=== PATIENT | male | born 1965 | race Caucasian/White ===

== ENCOUNTER 2021-11-05 12:54 | Outpatient (REF) | payer OTHER, SELFPAY ==
[2021-11-05 14:54] LABS: COVID-19 Test Positive (Negative)
== END 2021-11-05 12:55 | disposition home or self-care (01) ==
LOC: HO.LAB 12:54
PROVIDERS: Visit Provider Internal Medicine
DX: Z20.822 Contact with and (suspected) exposure to COVID-19 (principal)
CPT/HCPCS: 36415; 87635; C9803

== ENCOUNTER 2024-04-08 02:31 | Emergency (ER) | payer OTHER, SELFPAY ==
[2024-04-08] VITALS (8 sets, daily range): BP systolic 117–143; BP diastolic 69–90; PULSE 69–90; RESP 12–19; TEMP 36.1–36.7; O2SAT 96–98; BMI 29.4
--- NOTE | 2024-04-08 | ECG_ITS ---
Test Reason : CHEST PAIN Blood Pressure : / mmHG Vent. Rate : 068 BPM Atrial Rate : 068 BPM P-R Int : 158 ms QRS Dur : 108 ms QT Int : 414 ms P-R-T Axes : 051 027 059 degrees QTc Int : 440 ms Normal sinus rhythm Nonspecific ST abnormality Abnormal ECG No previous ECGs available Referred By: Generic ED Physician Electronically Signed By:ROSE AGOSTO
--- NOTE | ~2024-04-08 | XR_ITS ---
EXAMINATION: XR CHEST CLINICAL INFORMATION: Chest pain, weakness COMPARISON: None available. TECHNIQUE: Frontal view of the chest was obtained. FINDINGS: Lung volumes are symmetric. No focal consolidation is seen. No evidence of pneumothorax, pleural effusion, or pulmonary edema. The cardiomediastinal contour is unremarkable. No acute osseous findings are seen. XR/XR chest 1V IMPRESSION: No acute cardiopulmonary findings.
--- NOTE | 2024-04-08 02:51 | ED.CHESTPAIN ---
HPI - Chest Pain General Chief Complaint: Chest Pain Stated Complaint: chest/jaw pain Time Seen by Provider: 04/08/24 02:48 Source: patient Mode of arrival: ambulatory Limitations: no limitations History of Present Illness ED Provider: Dr. Ceasar Najera HPI narrative: 58-year-old male with history of diabetes mellitus, hypertension who presents emergency department for evaluation of bilateral jaw pain, chest pain, nausea, diaphoresis and lightheadedness. The patient states he has been under increased stress secondary to having to move and not having housing set up yet. He states that on 04/06/2024 he had 2 episodes of bilateral jaw pain that lasted hours. He was uncertain if it came on with rest or with exertion. He states that yesterday at around noon time he again had an episode of bilateral jaw pain that lasted 2 hours. He states that at midnight tonight, he had an episode of bilateral jaw pain that lasted 30 minutes and went away. At 02:00 hours again he had bilateral jaw pain that woke him up from sleep, he also had left-sided chest heaviness and left biceps pain. He states he became diaphoretic, felt lightheaded had nausea with no vomiting. At the time of my evaluation, he states that he was having chest tightness which was 5/10 and bilateral jaw pain which was 9/10. This is 1st episode of these types of symptoms. Related Data Allergies Allergy/AdvReac Type Severity Reaction Status Date / Time No Known Allergies Allergy Verified 04/08/24 03:03 Review of Systems Review of Systems: Yes all other systems are reviewed and are negative COUNT INCLUDES THE [facility] Past Medical History COUNT INCLUDES THE [facility] Narrative: Past medical history: Diabetes mellitus, hypertension. Social history: He does smoke cigarettes. He drinks alcohol several times a year. He denies drug use. Social History Social History Advance Directives: No Advance Directives Information Provided: Yes Do you have a plan to hurt others: No Plan Physical Exam Vital Signs: Vital Signs: Last Vital Signs Temp 97 F 04/08/24 03:00 Pulse 86 04/08/24 03:40 Resp 16 04/08/24 03:40 BP 133/69 04/08/24 03:40 Pulse Ox 96 04/08/24 03:40 O2 Del Method Room Air 04/08/24 03:40 BMI result Body Mass Index 29.4 Vital signs revealed elevated blood pressure of 143/89 otherwise unremarkable Exam: General: Awake, alert in no distress Head: Normocephalic, atraumatic EENT: PERRL, Lids normal, sclera normal, conjunctiva normal, nose normal , ears normal, throat without erythema or exudates Neck: Supple, no adenopathy Lung: breath sounds symmetric, no wheezing, rales or rhonchi Chest: symmetric movement, nontender Heart: regular rate and rhythm, normal S1, S2 no murmurs or rubs Abdomen: soft, non-tender, nondistended, normal bowel sounds Back: no vertebral tenderness, no CVAT Extremities: no deformities, moves all extremities symmetrically Neuro: Awake, alert, oriented, normal speech, cranial nerves intact, moves all extremities symmetrically Psych: Pleasant, cooperative Medications Administered Generic Name Dose Route Start Last Admin Trade Name Freq PRN Reason Stop Dose Admin Sodium Chloride 1,000 mls @ 125 mls/hr 04/08/24 03:15 04/08/24 03:53 Ns IVCONT Not Given .Q8H DESTINI Nitroglycerin 0.4 mg 04/08/24 03:15 04/08/24 03:37 Nitroglycerin 0.4 Mg Tab.Subl SUBLINGUAL 0.4 mg [id number] PRN Administration Chest/jaw pain Discontinued Medications Generic Name Dose Route Start Last Admin Trade Name Freq PRN Reason Stop Dose Admin Acetaminophen 975 mg 04/08/24 03:38 04/08/24 03:44 Acetaminophen 325 Mg Tablet PO 04/08/24 03:39 975 mg ONCE STA Administration Aspirin 324 mg 04/08/24 03:15 04/08/24 03:19 Aspirin 81 Mg Tab.Chew PO 04/08/24 03:16 324 mg ONCE ONE Administration Atorvastatin Calcium 80 mg 04/08/24 03:25 04/08/24 03:37 Atorvastatin Calcium 80 Mg Tablet PO 04/08/24 03:26 80 mg ONCE ONE Administration Heparin Sodium (Porcine) 4,000 unit 04/08/24 03:25 04/08/24 03:36 Heparin Sodium,Porcine 5,000 Unit/Ml Vial IVPUSH 04/08/24 03:26 4,000 unit ONCE ONE Administration Medical Decision Making Medical Decision Making MDM Narrative: 58-year-old male with history of diabetes mellitus , hypertension, tobacco use disorder who presents emergency department for evaluation of 2 days of intermittent jaw pain. The patient had bilateral jaw pain this evening at midnight that lasted 30 minutes. He then woke up at 02:00 hours with bilateral jaw pain, left-sided chest heaviness and left biceps pain. At the time my evaluation the patient's chest pain was 5/10 in his jaw pain was 9/10. Patient's blood pressure was elevated. Physical examination was unremarkable. Twelve EKG was concerning for ST segment elevation in V1 through V3 with inverted T-waves in V1 and V2. No old EKG for comparison. Repeat EKG did reveal increased ST segment elevation with inverted T-waves now in V1 through V3. Patient's high sensitive troponin I came back at 169.2. I did discuss the patient's presentation with the covering sizing machine tender at [facility], Dr. Praneeth Garcia who review the patient's EKGs and accepted the patient as a STEMI transfer. Differential diagnosis: ?Includes but is not limited to myocardial ischemia, myocardial infarction, chest wall pain, anxiety, anemia, electrolyte abnormalities Following evaluation was ordered: Nitroglycerin 0.4 mg sublingually times PRN chest pain, atorvastatin 80 mg orally, aspirin 324 mg to chew you, heparin bolus 4000 units Course: 03:43 My interpretation patient's laboratory evaluation as follows: CBC was normal. CMP revealed elevated BUN 27 with normal creatinine of 0.82 with a GFR of greater than 60. Glucose was elevated 190. High sensitive troponin I was 169.2 which is significantly elevated. My interpretation patient's one-view chest x-ray is increased interstitial markings bilaterally, normal mediastinum The patient was pain-free after receiving 3 sublingual nitroglycerins. Admission/Observation Consideration of admission/observation: Escalation of care including admission/observation considered Consult Healthcare Provider Management of the patient was discussed with: Protection Officer (braider operator at [facility], Dr. Praneeth Garcia) Lab Data MDM Lab Attestation statement: I reviewed the patient's lab results. 04/08/24 02:55 04/08/24 02:55 Labs: Lab Results 04/08/24 Range/Units 02:55 WBC 5.6 (4.8-10.8) X10*3/uL RBC 4.79 (4.60-5.80) X10*6/uL Hgb 14.8 (14.0-18.0) g/dl Hct 42.0 (42.0-52.0) % MCV 87.7 (80.0-98.0) fL MCH 30.9 (27.0-33.0) pg MCHC 35.2 (31.0-36.0) g/dl RDW 11.7 (11.0-16.0) % Plt Count 190 (160-400) X10*3/uL MPV 9.3 L (9.4-12.4) fL Immature Gran % (Auto) 0.4 (0.0-0.4) % Neut % (Auto) 49.0 (45-73) % Lymph % (Auto) 36.2 (20-40) % [place] % (Auto) 7.8 (2-11) % Eos % (Auto) 5.9 H (0-4) % Baso % (Auto) 0.7 (0-2) % Lymph # (Auto) 2.0 (1.2-4.9) X10*3/uL [place] # (Auto) 0.4 (0.1-1.2) X10*3/uL Eos # (Auto) 0.3 (0.0-0.4) X10*3/uL Baso # (Auto) 0.0 (0.0-0.2) X10*3/uL Abs Immat Gran (auto) 0.02 (0.00-0.03) X10*3/uL Absolute Neuts (auto) 2.8 (2.0-8.3) x10*3/uL Absolute Nucleated RBC 0.000 (0.0-0.012) X10*3/uL Nucleated RBC % (auto) 0.0 (0.0-0.2) /100WBC PT 12.4 (11.1-13.3) SEC INR 1.0 (0.9-1.1) APTT 31.3 (26.0-36.8) SEC Sodium 138 (135-145) mmol/L Potassium 3.4 (3.3-5.1) mmol/L Chloride 105 (96-108) mmol/L Carbon Dioxide 25 (22-29) mmol/L Anion Gap 11 L (12-20) BUN 27 H (9-16) mg/dL Creatinine 0.82 (0.5-1.4) mg/dL Estim Creat Clear Calc 115.1 Estimated GFR > 60 Random Glucose 190 H (60-115) mg/dL Calcium 8.9 (8.4-10.2) mg/dL Total Bilirubin 0.6 (0.0-1.0) mg/dL AST 17 (5-37) U/L ALT 18 (0-40) U/L Alkaline Phosphatase 57 (39-117) U/L Troponin I High Sens 169.2 H* (<3.5-35.0) ng/L Total Protein 6.7 (6.5-8.0) g/dL Albumin 4.0 (3.5-5.0) g/dL Independent Interpretation I performed an independent interpretation of an: EKG Interpretation: My independent interpretation patient's EKG done at 02:39 hours is as follows: Normal sinus rhythm with a rate of 68, normal NE interval, QRS duration QTC interval, less than [address] segment elevation V2 through V3, inverted T-wave V1 and V2, no other significant T-wave abnormalities, no PACs, no PVCs My independent interpretation of the patient's repeat EKG done at 03:23 hours is as follows: Normal sinus rhythm at a rate of 70, normal NE interval, QRS duration QTC interval, ST segment elevation V1 through V3 are similar the patient now has inverted T-waves V1 through V3 with no other significant change from the 1st EKG. No PACs, no PVCs Chronic Conditions Patient?s care impacted by: Diabetes and Hypertension Critical Care Time Critical Care Time Critical Care Time: Yes Total Critical Care Time: 35 Attestation: Critical Care: The patient was critically ill with a high probability of imminent or life threatening deterioration. I spent greater than 30 minutes of discontinuous time evaluating the patient,delivering critical care at the bedside, discussing and evaluating pertinent data with consultants. Critical care time does not include time spent performing separately billable procedures or teaching. Total time spent performing critical care was 35 minutes. Discharge Plan Discharge Clinical Impression: Acute non-ST elevation myocardial infarction (NSTEMI) Patient Disposition: [facility] Transfer Details: [facility] Print Language: Telugu
[2024-04-08 03:00] LABS: MANUAL DIFF FLAG NO
[2024-04-08 03:01] LABS: Basophils Percent Auto 0.7 % (0-2); Eosinophils Absolute Auto 0.3 X10*3/uL (0.0-0.4); Eosinophils Percent Auto 5.9 % (0-4); Hemoglobin 14.8 g/dl (14.0-18.0); Imm Gran Abs Auto 0.02 X10*3/uL (0.00-0.03); Imm Gran Pct Auto 0.4 % (0.0-0.4); Lymphocytes Percent Auto 36.2 % (20-40); Mean Corpuscular HGB Conc 35.2 g/dl (31.0-36.0); Mean Corpuscular Hemoglobin 30.9 pg (27.0-33.0); Mean Corpuscular Volume 87.7 fL (80.0-98.0); Mean Platelet Volume 9.3 fL (9.4-12.4); Monocytes Absolute Auto 0.4 X10*3/uL (0.1-1.2); Monocytes Percent Auto 7.8 % (2-11); Neutrophils Absolute Auto 2.8 x10*3/uL (2.0-8.3); Platelet Count 190 X10*3/uL (160-400); Red Blood Count 4.79 X10*6/uL (4.60-5.80); Red Cell Distribution Width 11.7 % (11.0-16.0); White Blood Count 5.6 X10*3/uL (4.8-10.8)
[2024-04-08 03:08] LABS: Prothrombin Time 12.4 SEC (11.1-13.3)
[2024-04-08 03:15] LABS: Alanine Aminotransferase 18 U/L (0-40); Alkaline Phosphatase 57 U/L (39-117); Anion Gap 11 (12-20); Aspartate Amino Transferase 17 U/L (5-37); Bilirubin Total 0.6 mg/dL (0.0-1.0); Blood Urea Nitrogen 27 mg/dL (9-16); Calcium 8.9 mg/dL (8.4-10.2); Carbon Dioxide 25 mmol/L (22-29); Chloride 105 mmol/L (96-108); Creatinine Clr Calc Pharmacy 115.1; Estimated Glomerular Filt Rate > 60; Glucose Random 190 mg/dL (60-115); Potassium 3.4 mmol/L (3.3-5.1); Sodium 138 mmol/L (135-145); Total Protein 6.7 g/dL (6.5-8.0)
[2024-04-08] MEDS: Aspirin 81 MG TAB.CHEW 324 MG PO (03:19)
--- NOTE | 2024-04-08 03:19 | ECG_ITS ---
Test Reason : REPEAT Blood Pressure : / mmHG Vent. Rate : 070 BPM Atrial Rate : 070 BPM P-R Int : 162 ms QRS Dur : 098 ms QT Int : 418 ms P-R-T Axes : 052 021 017 degrees QTc Int : 451 ms Normal sinus rhythm Nonspecific T wave abnormality Abnormal ECG When compared with ECG of 08-APR-2024 02:39, T wave inversion now evident in Inferior leads Referred By: Ceasar Najera Electronically Signed By:ROSE AGOSTO
[2024-04-08] MEDS: Nitroglycerin 0.4 MG TAB.SUBL SUBLINGUAL ×3 (03:24→03:37)
[2024-04-08 03:25] LABS: Troponin-I High Sensitivity 169.2 ng/L (<3.5-35.0)
[2024-04-08] MEDS: Heparin Sodium,Porcine 5,000 UNIT/ML VIAL 4000 UNIT IVPUSH (03:36)
[2024-04-08] MEDS: Atorvastatin Calcium 80 MG TABLET PO (03:37)
[2024-04-08] MEDS: Acetaminophen 325 MG TABLET 975 MG PO (03:44)
[2024-04-08 03:55] LABS: Partial Thromboplastin Time 31.3 SEC (26.0-36.8)
--- NOTE | 2024-04-08 03:55 | PC.NURSE ---
called veterinary laboratory technician with no success, will attempt again
--- NOTE | 2024-04-08 04:11 | PC.NURSE ---
report given to labor commissioner
[2024-04-08 04:13] LABS: COVID-19 Test Negative (Negative); IDNOW Serial# 6674DD1D
[2024-04-08 04:18] LABS: B Type Natriuretic Peptide 122 pg/mL (<100)
== END 2024-04-08 03:55 | disposition short-term general hospital (02) ==
PROVIDERS: Emergency Provider Emergency Medicine Emergency Medical Services
DX: I21.4 Non-ST elevation (NSTEMI) myocardial infarction (principal); I10 Essential (primary) hypertension; R07.9 Chest pain, unspecified; R68.84 Jaw pain; E11.9 Type 2 diabetes mellitus without complications; R11.0 Nausea; R61 Generalized hyperhidrosis; R42 Dizziness and giddiness
CPT/HCPCS: 36415; 71045; 80053; 83880; 84484; 85025; 85610; 85730; 87635; 93005; 99285; J1644

== ENCOUNTER → 2024-04-08 02:39 | Outpatient (BNV) | payer OTHER, SELFPAY | PROVIDERS: Emergency Provider Emergency Medicine Emergency Medical Services; Visit Provider Internal Medicine | DX: R94.31 Abnormal electrocardiogram [ECG] [EKG] (principal) | CPT/HCPCS: 93010 ==

== ENCOUNTER 2024-09-11 06:56 | Emergency (ER) | payer OTHER, SELFPAY ==
--- NOTE | ~2024-09-11 | CT_ITS ---
EXAMINATION: CT LUMBAR SPINE WITHOUT CONTRAST CLINICAL INFORMATION: Low back pain. COMPARISON: None available. TECHNIQUE: Contiguous axial images through the lumbar spine from T12 to the S1 using 2 mm collimation with bone and soft tissue algorithm. Sagittal and coronal reformatted images acquired. This CT examination was performed using dose optimization techniques as appropriate, variously including the following: *Automated exposure control *Adjustment of mA and/or kV according to patient size (this includes techniques or standardized protocols for targeted exams where dose is matched to indication/reason for exam; i.e. extremities or head) *Use of iterative reconstruction technique DLP; 444 mGy-cm FINDINGS: Last rib-bearing vertebra labeled T12. Multilevel marginal osteophyte formation and syndesmophyte formation more conspicuous at T11-12, L2-3 levels. Facet joint hypertrophy, bilaterally from L3-4, 2 L5-S1 resulting in reduced AP diameter of the central spinal canal and neural foramina at L4-5 and L5-S1 levels likely encroaching and or compressing the neural elements. Fatty atrophy of the lower lumbar muscles from L4 to the S1. Sclerosis and vacuum phenomenon with syndesmophyte formation, sacroiliac joints, right greater than the left side. No acute cortical disruption. There is a subtle grade 1 retrolisthesis L3-4 on a degenerative basis. No hydronephrosis or nephrolithiasis in either kidney. Normal diameter of the abdominal aorta wall. Calcified plaques in the abdominal aorta wall and right iliac arteries. CT/CT lumbar spine wo IV con IMPRESSION: Multilevel spondylosis more conspicuous at L4-5 and L5-S1 likely encroaching and or compressing the neural elements. No acute fracture or trauma-related listhesis. Electronically signed by: David Dougherty MD 09/11/2024 08:13 AM EST
[2024-09-11 06:59] VITALS: BP 127/77; PULSE 77; RESP 18; TEMP 36.3; O2SAT 96; BMI 27.8
--- NOTE | 2024-09-11 07:29 | ED_ITS ---
HPI - General Adult General Chief complaint: Back Pain/Injury Stated complaint: lower back pain Time Seen by Provider: 09/11/24 07:28 Source: patient and family (patient's ) Mode of arrival: ambulatory Limitations: no limitations History of Present Illness ED Provider: Roxana Cheng PA-C HPI narrative: Patient is a 59 year old assigned male at with a history of arthritis of the lumbar spine presenting to the emergency department today with worsening right sided low back pain. Patient states that he is in pain at all times in his low back but this feels further over to the right and worse than usual. Patient states that he has had shots in his back before for his normal low back pain. Patient states that he has been having an increase in urinary frequency. Patient denies any dizziness, lightheadedness, abdominal pain, nausea, vomiting, fever, chills, blurry vision, double vision, loss of vision, chest pain, difficulty breathing, shortness of breath, night sweats, pain with urination, increased urinary urgency, blood in his urine or stool, syncope or a near syncopal episode, recent trauma or falls, bowel incontinence, bladder incontinence, or any other complaints at this time. Relieving factors: immobilization Exacerbating factors: movement Associated symptoms: other (increased urinary frequency) Treatments prior to arrival: none Related Data Previous Rx's ?Medication ?Instructions ?Recorded prednisone 20 mg tablet 20 mg PO DAILY 12 days #26 tabs 09/11/24 Allergies Allergy/AdvReac Type Severity Reaction Status Date / Time shellfish derived Allergy Angioedema Verified 09/11/24 07:01 Review of Systems 2 Constitutional: Constitutional: Reports no additional constitutional complaints, Denies chills, Denies fever(s) and Denies night sweats Eyes: Eyes: Reports no additional eye complaints, Denies blurry vision, Denies change in vision, Denies diplopia, Denies eye discharge, Denies loss of vision and Denies eye pain ENT: Denies dizziness Cardiovascular: Cardiovascular: Reports no additional cardiovascular complaints, Denies chest pain, Denies lightheadedness, Denies Loss of Consciousness and Denies dyspnea Respiratory: Respiratory: Reports no additional respiratory complaints and Denies dyspnea Gastrointestinal: Gastrointestinal: Reports no additional gastrointestinal complaints, Denies abdominal pain, Denies melena, Denies hematochezia, Denies change in bowel habits and Denies change in stool character Genitourinary: Genitourinary: Reports no additional male genitourinary complaints, Denies hematuria, Denies oliguria, Denies difficulty urinating, Denies dysuria, Reports urinary frequency, Denies urinary hesitancy, Denies urinary incontinence and Denies urinary urgency Musculoskeletal: Musculoskeletal: Reports no additional musculoskeletal complaints, Reports back pain, Denies numbness and Denies tingling Neurologic: Denies dizziness, Denies loss of vision, Denies numbness and Denies tingling Psychiatric: Psychiatric: Reports no additional psychiatric complaints Endocrine: Endocrine: Reports no additional endocrine complaints Hematologic/Lymphatic: Hematologic/Lymphatic: Reports no additional hematologic/lymphatic complaints Allergic/Immunologic: Allergic/Immunologic: Reports no additional allergic/immunologic complaints PMFSH Past Medical History Attestation statement: The following information was validated with the patient. (all information validated with the patient's ) Source: old records reviewed, obtained from family (patient's provided additional history and confirmed the history provided by the patient.) and nursing notes reviewed Social History Social History Advance Directives: Yes Advance Directives Information Provided: Yes Advance Directives on File: No Physical Exam ED Vital Signs: Vital Signs - 24 hr 09/11/24 06:59 09/11/24 08:42 09/11/24 09:38 Temperature 97.3 F 97.3 F 97.3 F Pulse Rate 77 66 66 Respiratory Rate 18 19 19 Blood Pressure 127/77 118/68 118/68 Pulse Oximetry 96 95 95 Oxygen Delivery Method Room Air Room Air Room Air BMI result Body Mass Index 27.8 Const General: cooperative, no acute distress, alert and awake Nutritional Appearance: well nourished Orientation/consciousness: patient oriented x3 Limitations: no limitations [facility] Head: Yes normal to inspection and Yes atraumatic Ears: hearing grossly normal bilaterally and external ears normal General nose exam: Normal external nose present, no nasal discharge noted and no epistaxis Face and sinus: Yes normal facial exam, No abrasion and No laceration Mouth: Normal oral and palatal mucosa present, no drooling and no muffled voice Eyes General: appearance normal, both eyes and all related structures Periorbital: periorbital findings normal Eyelids: Yes eyelids normal Conjunctivae: conjunctivae normal Pupils: Equal, round and reactive pupils present EOM: EOMs intact bilaterally Neck Neck: Yes normal visual inspection, Yes full ROM and Yes no lymphadenopathy Chest Chest palpation & inspection: normal inspection of the chest Resp Effort & Inspection: normal respiratory effort and able to speak in complete sentences GI Inspection: Yes normal to inspection General: Yes no CVA tenderness Back/Spine/Pelvis Back: no CVA tenderness Cervical Spine: normal cervical lordosis and cervical ROM normal Thoracic/Lumbar Spine: thoracic and lumbar spine normal to inspection and thoraco-lumbar ROM normal Pelvis: no pain with anterior-posterior compression Neuro General: patient oriented x3 and moves all extremities Cranial nerves: Yes Equal, round and reactive pupils present Cognition (Neuro): normal cognition Extrem General: Yes normal to inspection, Yes full ROM and Yes capillary refill normal Psych Appearance: grossly normal Mental Status: mental status grossly normal Affect: normal affect Attitude: cooperative Thought process: Normal thought process present Thought content: Normal thought content present Insight: Good insight present (Psych) Medications Administered Discontinued Medications Generic Name Dose Route Start Last Admin Trade Name Freq PRN Reason Stop Dose Admin Oxycodone HCl 10 mg 09/11/24 07:29 09/11/24 07:52 Oxycodone Hcl Immed Release 5 Mg Tablet PO 09/11/24 07:30 10 mg ONCE ONE Administration Medical Decision Making Medical Decision Making [facility] Narrative: Patient is a 59 year old assigned male at with a history of arthritis of the lumbar spine presenting to the emergency department today with worsening right sided low back pain. Patient's physical exam was as noted in the physical exam portion of this note. Patient's blood work was unremarkable. Patient's urine showed no acute process. Patient's lumbar CT showed mulitlevel spondylosis more conspicous at L405 and L5-S1 likely encroaching and or compressing the neural elements. I explained my physical exam findings as well as all test results to the patient and the patient's . I answered all questions asked by the patient and the patient's . I stressed the importance of the patient taking his medication as directed (either prescribed or as the over the counter packaging recommends). I stressed the importance of the patient following up with his primary care provider. I stressed the importance of the patient returning to the emergency department immediately if his symptoms were to worsen or if he were to develop any dizziness, shortness of breath, difficulty breathing, chest pain, blurry vision, loss of vision, nausea, vomiting, abdominal pain, fever, chills, back pain, or any other complaints. Patient and the patient's verbalized agreement and understanding with this treatment plan and discharge. Differential Diagnosis Differential Diagnoses: The differential diagnosis associated with the presentation includes Low back pain Lumbar radiculopathy Admission/Observation Consideration of admission/observation: Escalation of care including admission/observation considered Patient would have been admitted to the hospital had his work up had any findings where hospital admission was appropriate and his clinical presentation warranted hospital admission. Lab Data [facility] Lab Attestation statement: I reviewed the patient's lab results. My interpretation of these results are in the [facility] Rationale portion of this note. 09/11/24 08:00 09/11/24 08:00 Labs: Lab Results 09/11/24 Range/Units 08:00 WBC 4.5 L (4.8-10.8) X10*3/uL RBC 4.78 (4.60-5.80) X10*6/uL Hgb 14.8 (14.0-18.0) g/dl Hct 41.8 L (42.0-52.0) % MCV 87.4 (80.0-98.0) fL MCH 31.0 (27.0-33.0) pg MCHC 35.4 (31.0-36.0) g/dl RDW 11.8 (11.0-16.0) % Plt Count 204 (160-400) X10*3/uL MPV 9.4 (9.4-12.4) fL Immature Gran % (Auto) 0.4 (0.0-0.4) % Neut % (Auto) 55.2 (45-73) % Lymph % (Auto) 30.5 (20-40) % [place] % (Auto) 9.7 (2-11) % Eos % (Auto) 3.5 (0-4) % Baso % (Auto) 0.7 (0-2) % Lymph # (Auto) 1.4 (1.2-4.9) X10*3/uL [place] # (Auto) 0.4 (0.1-1.2) X10*3/uL Eos # (Auto) 0.2 (0.0-0.4) X10*3/uL Baso # (Auto) 0.0 (0.0-0.2) X10*3/uL Abs Immat Gran (auto) 0.02 (0.00-0.03) X10*3/uL Absolute Neuts (auto) 2.5 (2.0-8.3) x10*3/uL Absolute Nucleated RBC 0.000 (0.0-0.012) X10*3/uL Nucleated RBC % (auto) 0.0 (0.0-0.2) /100WBC Sodium 137 (135-145) mmol/L Potassium 4.0 (3.3-5.1) mmol/L Chloride 103 (96-108) mmol/L Carbon Dioxide 25 (22-29) mmol/L Anion Gap 13 (12-20) BUN 13 (9-16) mg/dL Creatinine 0.69 (0.5-1.4) mg/dL Estim Creat Clear Calc 131.8 Estimated GFR > 60 Random Glucose 175 H (60-115) mg/dL Calcium 9.3 (8.4-10.2) mg/dL Total Bilirubin 1.1 H (0.0-1.0) mg/dL AST 18 (5-37) U/L ALT 29 (0-40) U/L Alkaline Phosphatase 68 (39-117) U/L Total Protein 6.9 (6.5-8.0) g/dL Albumin 4.1 (3.5-5.0) g/dL Urine Color Yellow Urine Appearance Clear Urine pH 7.5 (5.0-9.0) Ur Specific [place] <= 1.005 (1.005-1.025) Urine Protein Negative (Neg-Trace) mg/dL Urine Glucose (UA) Negative (Negative) mg/dL Urine Ketones Negative (Negative) mg/dL Urine Blood Negative (Negative) Urine Nitrite Negative (Negative) Ur Leukocyte Esterase Negative (Negative) Independent Interpretation I performed an independent interpretation of an: CT Scan Interpretation: My interpretation is in agreement with the radiologist's impression of this imaging study. L EXAMINATION: CT LUMBAR SPINE WITHOUT CONTRAST CLINICAL INFORMATION: Low back pain. COMPARISON: None available. TECHNIQUE: Contiguous axial images through the lumbar spine from T12 to the S1 using 2 mm collimation with bone and soft tissue algorithm. Sagittal and coronal reformatted images acquired. This CT examination was performed using dose optimization techniques as appropriate, variously including the following: *Automated exposure control *Adjustment of mA and/or kV according to patient size (this includes techniques or standardized protocols for targeted exams where dose is matched to indication/reason for exam; i.e. extremities or head) *Use of iterative reconstruction technique DLP; 444 mGy-cm FINDINGS: Last rib-bearing vertebra labeled T12. Multilevel marginal osteophyte formation and syndesmophyte formation more conspicuous at T11-12, L2-3 levels. Facet joint hypertrophy, bilaterally from L3-4, 2 L5-S1 resulting in reduced AP diameter of the central spinal canal and neural foramina at L4-5 and L5-S1 levels likely encroaching and or compressing the neural elements. Fatty atrophy of the lower lumbar muscles from L4 to the S1. Sclerosis and vacuum phenomenon with syndesmophyte formation, sacroiliac joints, right greater than the left side. No acute cortical disruption. There is a subtle grade 1 retrolisthesis L3-4 on a degenerative basis. No hydronephrosis or nephrolithiasis in either kidney. Normal diameter of the abdominal aorta wall. Calcified plaques in the abdominal aorta wall and right iliac arteries. CT/CT lumbar spine wo IV con IMPRESSION: Multilevel spondylosis more conspicuous at L4-5 and L5-S1 likely encroaching and or compressing the neural elements. No acute fracture or trauma-related listhesis. Electronically signed by: David Dougherty MD 09/11/2024 08:13 AM EST Dictated By: David Daley Signed By: Electronically signed by David Cohn 09/11/24 0813 Radiology Impression Discussion of test interpretation with radiology: I have reviewed the radiologist's reading. Independent Historian Clinical information obtained from an independent historian. History obtained from or confirmed by: Spouse (patient's provided additional history and confirmed the history provided by the patient.) Discharge Plan Discharge Clinical Impression: Lumbar radiculopathy Patient Disposition: Home, Self-Care Instructions: Lumbar Radiculopathy (ED), Lower Back Exercises (ED) Additional Instructions: Follow up with your primary care provider and a human services program specialist. Return to the emergency department immediately if your symptoms worsen or if you develop any dizziness, shortness of breath, difficulty breathing, chest pain, blurry vision, loss of vision, nausea, vomiting, abdominal pain, fever, chills, back pain, or any other complaints. Prescriptions: New prednisone 20 mg tablet 20 mg PO DAILY 12 Days Qty: 26 0RF Rx Instructions: Take 3 tablets for 5 days THEN; Take 2 tablets for 4 days THEN; Take 1 tablet for 3 days Referrals: [facility] [Provider Group] (Call to establish and follow up with a primary care provider. If you already have a primary care provider, please follow up with them.) [facility] [place] [Provider Group] (Call to establish and follow up with a primary care provider. If you already have a primary care provider, please follow up with them.) [facility],[place] [Provider Group] (Call to establish and follow up with a primary care provider. If you already have a primary care provider, please follow up with them.) [facility] [Provider Group] (Call to establish and follow up with a human services program specialist. ) [facility] [Provider Group] (Call to establish and follow up with a human services program specialist. ) Stand Alone Forms: Work/School Release Interventions: ED Discharge Assessment Last Done: 09/11/24 09:38 Discharge Date/Time: 09/11/24 09:39 Print Language: Arabic
[2024-09-11] MEDS: oxyCODONE HCl Immed Release 5 MG TABLET 10 MG PO (07:52)
[2024-09-11 08:06] LABS: MANUAL DIFF FLAG NO
[2024-09-11 08:08] LABS: Appearance Urine Clear; Color Urine Yellow; Glucose Urine UA Negative (Negative); Leukocyte Esterase Urine Negative (Negative); Nitrite Urine Negative (Negative); PH 7.5 (5.0-9.0); Specific Gravity - Urine <= 1.005 (1.005-1.025); Urine Blood Negative (Negative); Urine Ketones Negative (Negative); Urine Protein Negative (Neg-Trace)
[2024-09-11 08:09] LABS: Basophils Percent Auto 0.7 % (0-2); Eosinophils Absolute Auto 0.2 X10*3/uL (0.0-0.4); Eosinophils Percent Auto 3.5 % (0-4); Hematocrit 41.8 % (42.0-52.0); Hemoglobin 14.8 g/dl (14.0-18.0); Imm Gran Abs Auto 0.02 X10*3/uL (0.00-0.03); Imm Gran Pct Auto 0.4 % (0.0-0.4); Lymphocytes Absolute Auto 1.4 X10*3/uL (1.2-4.9); Lymphocytes Percent Auto 30.5 % (20-40); Mean Corpuscular HGB Conc 35.4 g/dl (31.0-36.0); Mean Corpuscular Volume 87.4 fL (80.0-98.0); Mean Platelet Volume 9.4 fL (9.4-12.4); Monocytes Absolute Auto 0.4 X10*3/uL (0.1-1.2); Monocytes Percent Auto 9.7 % (2-11); Neutrophils Absolute Auto 2.5 x10*3/uL (2.0-8.3); Neutrophils Percent Auto 55.2 % (45-73); Platelet Count 204 X10*3/uL (160-400); Red Blood Count 4.78 X10*6/uL (4.60-5.80); Red Cell Distribution Width 11.8 % (11.0-16.0); White Blood Count 4.5 X10*3/uL (4.8-10.8)
--- NOTE | 2024-09-11 08:14 | PC.NURSE ---
alert and oriented with even and unlabored respirations. IV established, labs obtained and sent. medicated per the JAN. awaiting results of ct scan. call olivera within reach.
[2024-09-11 08:41] LABS: Alanine Aminotransferase 29 U/L (0-40); Albumin Level 4.1 g/dL (3.5-5.0); Alkaline Phosphatase 68 U/L (39-117); Anion Gap 13 (12-20); Aspartate Amino Transferase 18 U/L (5-37); Bilirubin Total 1.1 mg/dL (0.0-1.0); Blood Urea Nitrogen 13 mg/dL (9-16); Calcium 9.3 mg/dL (8.4-10.2); Carbon Dioxide 25 mmol/L (22-29); Chloride 103 mmol/L (96-108); Creatinine Clr Calc Pharmacy 131.8; Estimated Glomerular Filt Rate > 60; Glucose Random 175 mg/dL (60-115); Sodium 137 mmol/L (135-145); Total Protein 6.9 g/dL (6.5-8.0)
[2024-09-11 08:42] VITALS: BP 118/68; PULSE 66; RESP 19; TEMP 36.3; O2SAT 95
[2024-09-11 09:38] VITALS: BP 118/68; PULSE 66; RESP 19; TEMP 36.3; O2SAT 95
== END 2024-09-11 09:39 | disposition home or self-care (01) ==
PROVIDERS: Physician Assistant Medical; Emergency Provider Emergency Medicine
DX: M54.16 Radiculopathy, lumbar region (principal); M54.50 Low back pain, unspecified; R35.0 Frequency of micturition; Z79.899 Other long term (current) drug therapy
CPT/HCPCS: 36415; 72131; 80053; 81003; 85025; 99284; 99285

== ENCOUNTER → 2024-09-11 07:29 | Outpatient (BNV) | payer OTHER, SELFPAY | PROVIDERS: Emergency Provider Emergency Medicine; Visit Provider Radiology Diagnostic Radiology | DX: M54.50 Low back pain, unspecified (principal) | CPT/HCPCS: 72131 ==